=== PATIENT | male | born 1985 | race Caucasian/White ===

== ENCOUNTER 2023-06-04 06:47 | Emergency (ER) | payer OTHER ==
[~2023-06-04] VITALS: Ht 177.8 cm; Wt 86.2 kg
[2023-06-04] VITALS (11 sets, daily range): BP systolic 107–127; BP diastolic 65–84
[2023-06-04 07:51] LABS: BASO% 1.1 % (0-3); EOS% 2.3 % (0-8); HEMATOCRIT 42.9 % (39.0-50.0); HEMOGLOBIN 15.5 g/dl (14.0-18.0); IMMATURE GRANULOCYTES 0.4 % (0.0-5.0); LYMPH% 47.9 % (15-41); MEAN CELL VOLUME 91.1 fL CALC (80.0-100.0); MEAN CORPUSCULAR HGB 32.9 pG CALC (26.0-32.0); MEAN CORPUSCULAR HGB CONC 36.1 g/dL CAL (32.0-36.0); MONO% 8.3 % (2-13); NEUT# 2.98 thou/uL (1.82-7.42); RED BLOOD COUNT 4.71 mill/uL (4.70-6.10); RED CELL DISTRI WIDTH 11.4 % (11.5-15.5)
[2023-06-04 07:59] LABS: URINE BILIRUBIN - DIPSTICK Negative (NEGATIVE); URINE BLOOD DIPSTICK Negative (NEGATIVE); URINE COLOR Yellow; URINE GLUCOSE - DIPSTICK Negative (NEGATIVE); URINE KETONE Negative (NEGATIVE); URINE LEUK ESTERASE Negative (NEGATIVE); URINE NITRITE - DIPSTICK Negative (Negative); URINE PROTEIN - DIPSTICK Negative (NEG-TRACE); URINE SPECIFIC GRAVITY <=1.005; URINE UROBILINOGEN - DIPSTICK 0.2 E.U./dL (0.2)
[2023-06-04 08:06] LABS: ALBUMIN 4.6 g/dL (3.2-5.0); ALKALINE PHOSPHATASE 48 u/l (38-126); ANION GAP 17 (6-22 (CALC)); BILIRUBIN, TOTAL 0.5 mg/dL (0.2-1.3); BUN 6 mg/dL (9-20); BUN/CREATININE RATIO 6 (12-20 (CALC)); CARBON DIOXIDE 28 mmol/l (22-30); CHLORIDE 98 mmol/l (95-108); ETHYL ALCOHOL 222 mg/dl (0-30); GFR FOR AFR.AMER. > 60 ML/MIN (>=60 (CALC)); GFR OTHER RACES > 60 ML/MIN (>=60 (CALC)); POTASSIUM 3.4 mmol/l (3.5-5.1); SGOT/AST 42 u/l (17-59); SODIUM 140 mmol/l (137-146); TOTAL PROTEIN 7.9 g/dL (6.3-8.2)
[2023-06-04 08:47] LABS: PROTHROMBIN TIME 10.5 SECONDS (9.0-12.5)
[2023-06-04 08:48] LABS: D-DIMER < 0.17 mg/L (0.19-0.60)
== END 2023-06-04 10:35 | DRG 897 ==
LOC: ED 06:47
PROVIDERS: Family Medicine
DX: F10.129 Alcohol abuse with intoxication, unspecified (principal); Y90.7 Blood alcohol level of 200-239 mg/100 ml; E86.0 Dehydration; S00.31XA Abrasion of nose, initial encounter; X58.XXXA Exposure to other specified factors, initial encounter; Y92.9 Unspecified place or not applicable